=== PATIENT | male | born 1955 | race Hispanic/Latino ===

== ENCOUNTER 2022-01-11 06:42 | Day surgery (SDC) | payer OTHER ==
--- NOTE | 2022-01-07 13:42 | RAD REPORT ---
EXAM DESCRIPTION: RAD - Chest Pa And Lat (2 Views) - 01/07/2022 1:34 pm CLINICAL HISTORY: Pre Op Chest pain. COMPARISON: No comparisons FINDINGS: The lungs are clear. The heart is upper limit of normal in size. No displaced fractures.
[2022-01-11] MEDS ORDERED: NA CHLORIDE 0.9% 1,000 ML ONE (07:10)
[2022-01-11] MEDS ORDERED: CEFAZOLIN SODIUM 1 GM/VIAL ONE (07:15)
[2022-01-11] MEDS ORDERED: NA CHLORIDE 0.9% 50 ML ONE (07:15)
[2022-01-11] MEDS ORDERED: FENTANYL CITR 100 MCG/2 ML ONE (07:17)
[2022-01-11] MEDS ORDERED: propofoL 200 MG/20 ML VIAL IV ONE ×2 (07:17→07:18)
[2022-01-11 07:18] LABS: Protime INR 0.9
[2022-01-11] MEDS ORDERED: LIDOCAINE 1% MPF 30 ML VIAL ONE (07:18)
[2022-01-11] MEDS ORDERED: NS 0.9% VIAL 30 ML ONE (07:18)
[2022-01-11] MEDS ORDERED: LIDOCAINE 2% MPF 5 ML VIAL ONE (07:18)
[2022-01-11] MEDS ORDERED: MIDAZOLAM HCL 2 MG/2 ML INJ ONE (07:18)
[2022-01-11] MEDS ORDERED: ACETAMINOPHEN 500 MG TAB ONE (07:31)
[2022-01-11] MEDS ORDERED: CELECOXIB 100 MG CAPSULE ONE (07:31)
[2022-01-11] MEDS: BUPIVACAINE 0.25% PF 10 ML VIAL ONE ×2 (08:41→08:44)
--- NOTE | 2022-01-11 09:20 | P.BOP ---
Preoperative diagnosis: right ring and small finger trigger digit Postoperative diagnosis: same Primary procedure: right ring and small finger A1 nita releases Shield Installer: NONE,NONE Estimated blood loss: 3 cc Specimen: none Findings: see dictation Anesthesia: General Complications: None Implants: none Fluids & blood products: per anesthesia record Transferred to: Recovery Room Condition: Good
[2022-01-11 09:37] VITALS: TEMP 96.8; O2SAT 96
[2022-01-11 09:38] VITALS: BP 130/85
--- NOTE | 2022-01-14 18:26 | OP ---
Date of Procedure: 01/11/2022 Surgeon: Amauri Wagoner MD Preoperative Diagnosis: Right ring finger and small finger trigger digit. Postoperative Diagnosis: Right ring finger and small finger trigger digit. Procedure Performed: Right hand ring finger and small finger A1 nita releases. Anesthesia: Coupland block. Fluids: Per Anesthesia record. Estimated Blood Loss: 2 cc. Complications: None. Implants: None. Indication For Procedure: Félix is a 66-year-old male, who presented to my clinic with signs and s ymptoms consistent with right ring finger and small finger trigger digits. The patient failed conser vative treatment measures and elected to proceed with operative treatment. Description Of Procedure: After informed consent was obtained, the patient was identified in the pre operative holding area. The right hand ring finger and small finger were marked. The patient was th en brought back to the operating room, transferred to the operating table in supine fashion, and plac ed under Coupland block anesthesia. The right upper extremity was then prepped and draped in usual steri le fashion. A time-out was initiated. The correct patient and procedure were performed and identifi ed. The patient did receive his preoperative prophylactic antibiotics. Attention was first taken to the ring finger, where approximately a centimeter and a half incision was made, centered over the A1 nita. Dissection was then taken down to the flexor tendon sheath, which was evaluated. Ragnells were used for gentle retraction. The flexor tendon sheath was incised using a 15 blade and released in line with the incision. There was tenosynovial fluid expressed after release of the flexor tendon sheath. Flexor tendon was then brought out through the incision with full excursion without trigger ing noted. Next, attention was taken to the small finger, where a centimeter incision was made, cent ered over the A1 nita. Dissection was then taken down to the A1 flexor tendon sheath using Ragnell s. A 15 blade was then used to release the A1 nita. The flexor tendon was then brought out to the incision and there was full excursion of the flexor tendon without triggering noted. The wounds wer e then irrigated thoroughly with normal saline. Skin was approximated using a 5-0 Prolene. Sterile dressings were placed. The tourniquet was let down. The patient was transferred to PACU in stable c ondition. Postoperative Plan: The patient will be nonweightbearing of his right hand and follow up in 1 week f or suture removal. CV/MODL Voice ID: [id number] Report ID: [id number]
== END 2022-01-11 10:25 | disposition home or self-care (01) ==
LOC: PRE 06:42
PROVIDERS: ATTEND Orthopaedic Surgery Sports Medicine
PROC: 0LN70ZZ Release Right Hand Tendon, Open Approach (ICD-10-PCS; 2022-01-11)
PROC: 0LN70ZZ Release Right Hand Tendon, Open Approach (ICD-10-PCS; principal; 2022-01-11 08:00)
DX: M65.341 Trigger finger, right ring finger (principal); M65.351 Trigger finger, right little finger; M25.541 Pain in joints of right hand
CPT/HCPCS: 36415; 85610; 82947; 85730; 71046; 26055 ×2; J2704 ×2; J2250; J3010; J7030; J0690